=== PATIENT | female | born 1950 | race Caucasian/White ===

== ENCOUNTER 2018-01-22 23:08 | Emergency (ER) | payer MEDICARE, OTHER ==
[~2018-01-22] VITALS: Ht 167.6 cm; Wt 89.4 kg
--- OUTSIDE RECORDS SUMMARY | 2018-01-22 23:10 | XMS REPORT ---
Author Author Admin, [facility] [place] Address [place] Phone Unavailable Allergies, Adverse Reactions, Alerts Allergy Name Reaction Description Start Date Severity Status Provider PENICILLIN rash Critical Active Bartolome Messer MD Conditions or Problems Problem Name Problem Code Onset Date Status Entry Date Provider Comment Standard Description Annotate Hip pain, right 719.45 Active Elmer Guerra MD Pain in joint involving pelvic region and thigh acute flare up of chronic pain Pneumonia 486 Active Elmer Guerra MD Pneumonia, organism unspecified Vaccine against flu/influenza V04.8 Active Elmer Guerra MD Need for prophylactic vaccination and inoculation against other viral diseases Cholesterol, Screening V77.91 Active Elmer Guerra MD Screening for lipoid disorders Rib pain, left sided 786.50 Active Elmer Guerra MD Unspecified chest pain BMI 34.0-34.9 Active Elmer Guerra MD Body Mass Index 34.0-34.9, adult Allergic rhinitis 477.9 Active Elmer Guerra MD Allergic rhinitis, cause unspecified Vaccine against streptococcus pneumoniae V03.82 Active Elmer Guerra MD Need for prophylactic vaccination against Streptococcus pneumoniae [pneumococcus] HERNIA, VENTRAL 553.20 Active Kamaljit Freeman MD Unspecified ventral hernia without mention of obstruction or gangrene CARCINOMA, LUNG, HX OF V10.11 Active Sushila Malhotra MD Personal history of malignant neoplasm of bronchus and lung CHRONIC PAIN SYNDROME 338.4 Active Bartolome Messer MD Chronic pain syndrome OBESITY 278.00 Active Bartolome Messer MD Obesity, unspecified ANXIETY 300.00 Active Bartolome Messer MD Anxiety state, unspecified BACK PAIN 724.5 Active Bartolome Messer MD Backache, unspecified DIABETES MELLITUS 250.00 Active Bartolome Messer MD Diabetes mellitus without mention of complication, type II or unspecified type, not stated as uncontrolled HYPERTENSION 401.1 Active Bartolome Messer MD Benign essential hypertension BP is 120 over 80 OSTEOARTHRITIS 715.90 Active Bartolome Messer MD Osteoarthrosis, unspecified whether generalized or localized, involving unspecified site No evidence of escalation or diversion, compliant with pain contract. Achieving functional goals with the careful use of prescribed medication. Patient aware of risk/benefit of chronic pain medication and agrees with plan of care. Vaccination Against Influenza V04.81 Inactive Elmer Guerra MD Need for prophylactic vaccination and inoculation against influenza Vaccination Against Influenza ICD-V04.81 Inactive Elmer Guerra MD ADENOCARCINOMA, LUNG ICD-162.9 Inactive Sushila Malhotra MD NEED PROPH VACCINATION&INOCULAT OTH VIRAL DZ ICD-V04.89 Inactive Bartolome Messer MD HORDEOLUM ICD-373.11 Inactive Bartolome Messer MD DYSPNEA ICD-786.05 Inactive Sushila Malhotra MD ADENOCARCINOMA, LUNG 162.9 Resolved Sushila Malhotra MD Malignant neoplasm of bronchus and lung, unspecified NEED PROPH VACCINATION&INOCULAT OTH VIRAL DZ V04.89 Resolved Bartolome Messer MD Need for prophylactic vaccination and inoculation against other viral diseases HORDEOLUM 373.11 Resolved Bartolome Messer MD Hordeolum externum DYSPNEA 786.05 Resolved Sushila Malhotra MD Shortness of breath Medication List Medication Instructions Start Date Stop Date Generic Name NDC Status Provider Patient Instruction HYDROCHLOROTHIAZIDE 12.5 MG ORAL CAPSULE 1 by mouth every day HYDROCHLOROTHIAZIDE 08117068956 Active Elmer Guerra MD Active FLONASE ALLERGY RELIEF 50 MCG/ACT NASAL SUSPENSION 2 sprays each nostril every day FLUTICASONE PROPIONATE 76440096483 Active Elmer Guerra MD Active LIDODERM 5 % EXTERNAL PATCH one patch daily LIDOCAINE 75650798387 Active Liza Sarah DEV Active METFORMIN HCL ER (OSM) 500 MG ORAL TABLET EXTENDED RELEASE 24 HOUR take 1 tabs By Mouth bid METFORMIN HCL 96464590916 Active Elmer Guerra MD Active OXYCONTIN 80 MG [id number] 2 or 3 three times a day OXYCODONE HCL Active Sushila Malhotra MD Active PROAIR HFA 108 (90 Base) MCG/ACT INHALATION AEROSOL SOLUTION Two puff twice every 4 -6 housrs as needed ALBUTEROL SULFATE 45699707077 Active Elmer Guerra MD Active GABAPENTIN 300 MG ORAL CAPSULE Take 4 times a day GABAPENTIN 59942018516 Mik Guerra MD Active NAPROXEN 500 MG ORAL TABLET 1 by mouth twice a day as needed for pain and inflammation NAPROXEN 39420938958 Active Bartolome Messer MD Active BARIATRIC QUAD CANE For 4 footed cane to aid stability MISC. DEVICES 82219744987 Active Bartolome Messer MD Active ULTIMA KIT Test sugars twice a day BLOOD GLUCOSE MONITORING SUPPL 84654424982 Active Bartolome Messer MD Active ULTIMA TEST IN VITRO STRIP Test once to twice a day GLUCOSE BLOOD 45214071042 Mik Messer MD Active AMLODIPINE BESY-BENAZEPRIL HCL 10-20 MG ORAL CAPSULE One daily AMLODIPINE BESY-BENAZEPRIL HCL 88727353046 Active Elmer Guerra MD Active CELEXA 20 MG ORAL TABLET 1 by mouth every day CELEXA 20 MG ORAL TABLET 119871 CITALOPRAM HYDROBROMIDE Inactive DIAZEPAM 2 MG ORAL TABLET One daily DIAZEPAM 2 MG ORAL TABLET 128355 DIAZEPAM Inactive LISINOPRIL 20 MG ORAL TABLET 1 by mouth every day LISINOPRIL 20 MG ORAL TABLET 264445 LISINOPRIL Inactive BISOPROLOL-HYDROCHLOROTHIAZIDE 10-6.25 MG ORAL TABLET take 1 tablet By Mouth Every Day BISOPROLOL-HYDROCHLOROTHIAZIDE 10-6.25 MG ORAL TABLET 731630 BISOPROLOL-HYDROCHLOROTHIAZIDE Inactive CIPRODEX 0.3-0.1 % OTIC SUSPENSION Apply to R eye twice a day CIPRODEX 0.3-0.1 % OTIC SUSPENSION CIPROFLOXACIN-DEXAMETHASONE Inactive CELEXA 20 MG ORAL TABLET 1 by mouth every day CITALOPRAM HYDROBROMIDE 23078433026 No Longer Active Elmer Guerra MD Active DIAZEPAM 2 MG ORAL TABLET One daily DIAZEPAM 77897329968 No Longer Active Elmer Guerra MD Active LISINOPRIL 20 MG ORAL TABLET 1 by mouth every day LISINOPRIL 67648564146 No Longer Active Sushila Malhotra MD Active BISOPROLOL-HYDROCHLOROTHIAZIDE 10-6.25 MG ORAL TABLET take 1 tablet By Mouth Every Day BISOPROLOL-HYDROCHLOROTHIAZIDE 24421083336 No Longer Active Elmer Guerra MD Active CIPRODEX 0.3-0.1 % OTIC SUSPENSION Apply to R eye twice a day CIPROFLOXACIN-DEXAMETHASONE 06731601289 No Longer Active Sushila Malhotra MD Active Advance Directives Directive Description Start Date PER PT SHE WILL BRING A OOPY OF HER WILL Immunizations Vaccine Administration Date Value Standard Description influenza immunization (Flu Vax) has been administered given influenza virus vaccine, unspecified formulation pneumococcal immunization administered given pneumococcal polysaccharide vaccine, 23 valent influenza immunization (Flu Vax) has been administered given influenza virus vaccine, unspecified formulation PEDIATRIC PNEUMOCOCCAL VACCINE ([id number]) #1 given pneumococcal conjugate vaccine, 13 valent influenza immunization (Flu Vax) has been administered given influenza virus vaccine, unspecified formulation influenza immunization (Flu Vax) has been administered Given as: Flu (split) (3 yrs or older) 0.5 mL IM influenza virus vaccine, unspecified formulation Vital Signs Date Name Value Unit Range Description blood pressure, diastolic, second observation 76 mm[Hg] BP branham blood pressure, diastolic 82 mm[Hg] BP branham blood pressure, systolic, second observation 126 mm[Hg] BP sys blood pressure, systolic 159 mm[Hg] BP sys height E&M 65 [in_us] Bdy height pulse rate E&M 111 /min Heart rate respiratory rate E&M 18 /min Resp rate temperature E&M 98.4 [degF] Body temperature weight E&M 193 [lb_av] Weight Measured blood pressure, diastolic 79 mm[Hg] BP branham blood pressure, systolic 133 mm[Hg] BP sys height E&M 65 [in_us] Bdy height pulse rate E&M 91 /min Heart rate respiratory rate E&M 16 /min Resp rate temperature E&M 98.4 [degF] Body temperature weight E&M 204.80 [lb_av] Weight Measured blood pressure, diastolic 68 mm[Hg] BP branham blood pressure, systolic 152 mm[Hg] BP sys height E&M 65 [in_us] Bdy height pulse rate E&M 80 /min Heart rate respiratory rate E&M 18 /min Resp rate temperature E&M 97.7 [degF] Body temperature weight E&M 199 [lb_av] Weight Measured Diagnostic Results Date Name Value Unit Range Description Lab Report: CBC With Differential/Platelet, Comp. Metabolic Panel (14), ... - Hematology lymphocyte count, blood, automated 2.8 X10E3/UL 10*3/mm3 0.7- 3.1 Lab Report: Comp. Metabolic Panel (14), Hemoglobin A1c - Chemistry urea nitrogen, blood 6 mg/dL 8-27 creatinine, serum 0.72 mg/dL 0.57-1.00 chloride, serum 89 mmol/L 96-106 Lab Report: CBC With Differential/Platelet, Comp. Metabolic Panel (14), ... - Hematology mean corpuscular volume, RBC 99 fL 79-97 Lab Report: Comp. Metabolic Panel (14), Lipid Panel, Hemoglobin A1c - Chemistry triglyceride, serum, fasting 83 mg/dL 0-149 Lab Report: CBC With Differential/Platelet, Comp. Metabolic Panel (14), ... - Hematology erythrocyte (RBC) count 4.71 X10E6/UL 10*6/mm3 3.77-5.28 Lab Report: Comp. Metabolic Panel (14), Hemoglobin A1c - Chemistry Estimated Glomerular Filtration Rate (calc) 86 mL/min/1.73m2 > 59 Lab Report: CBC With Differential/Platelet, Comp. Metabolic Panel (14), ... - Hematology platelet count 254 X10E3/UL 10*3/mm3 725-013 6366/03/01 red blood cell distribution width 14.0 % 12.3-15.4 Lab Report: Comp. Metabolic Panel (14), Hemoglobin A1c - Chemistry protein, total, serum 7.1 g/dL 6.0-8.5 Lab Report: Comp. Metabolic Panel (14), Lipid Panel, Hemoglobin A1c - Chemistry HDL cholesterol, serum 55 mg/dL >39 Lab Report: Comp. Metabolic Panel (14), Hemoglobin A1c - Chemistry albumin/globulin ratio, serum 1.4 1.2-2.2 Lab Report: CBC With Differential/Platelet, Comp. Metabolic Panel (14), ... - Hematology eosinophils as percent of blood leukocytes 1 % Lab Report: CBC With Differential/Platelet, Comp. Metabolic Panel (14), ... - Chemistry Absolute Neutrophils 6.6 X10E3/UL 10*3/uL 1.4-7.0 microalbumin/creatinine ratio, urine 16.6 MG/G CREAT ug/mg 0.0- 30.0 Lab Report: CBC With Differential/Platelet, Comp. Metabolic Panel (14), ... - Hematology basophil count, absolute 0.0 x10E3/uL 0.0-0.2 Lab Report: Comp. Metabolic Panel (14), Hemoglobin A1c - Chemistry alanine aminotransferase (SGPT), serum 11 U/L 0-32 Lab Report: Comp. Metabolic Panel (14), Lipid Panel, Hemoglobin A1c - Chemistry LDL cholesterol, serum 80 mg/dL 0-99 Lab Report: CBC With Differential/Platelet, Comp. Metabolic Panel (14), ... - Hematology monocytes as percent of blood leukocytes 7 % Lab Report: Comp. Metabolic Panel (14), Lipid Panel, Hemoglobin A1c - Chemistry cholesterol, serum 152 mg/dL 100-199 Lab Report: CBC With Differential/Platelet, Comp. Metabolic Panel (14), ... - Hematology mean corpuscular hemoglobin concentration, RBC 32.5 G/DL % 31.5- 35.7 hemoglobin, blood 15.2 g/dL 11.1-15.9 leukocyte count, blood 10.3 X10E3/UL 10*3/mm3 3.4-10.8 hematocrit, blood 46.7 % 34.0-46.6 Lab Report: Comp. Metabolic Panel (14), Hemoglobin A1c - Chemistry globulin, serum 3.0 1.5-4.5 albumin, serum 4.1 g/dL 3.6-4.8 Internal Correspondence: Pre-Visit Planning - Other List of providers caring for patient Stefanie Naqvi and Desirae Reid Lab Report: Comp. Metabolic Panel (14), Lipid Panel, Hemoglobin A1c - Chemistry very low density lipoproteins 17 mg/dL 5-40 Lab Report: Comp. Metabolic Panel (14), Hemoglobin A1c - Chemistry calcium, serum 9.3 mg/dL 8.7-10.3 Lab Report: CBC With Differential/Platelet, Comp. Metabolic Panel (14), ... - Hematology basophils as percent of blood leukocytes 0 % Lab Report: CBC With Differential/Platelet, Comp. Metabolic Panel (14), ... - Urinalysis microalbumin/total urine volume 9 mg/L Units converted. See lab report for original value. Lab Report: CBC With Differential/Platelet, Comp. Metabolic Panel (14), ... 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 Metabolic Panel (14), Hemoglobin A1c - Chemistry urea nitrogen/creatinine ratio, serum 8 12-28 Lab Report: CBC With Differential/Platelet, Comp. Metabolic Panel (14), ... - Chemistry immature granulocytes, percentage of total cells, blood 0 % Lab Report: Comp. Metabolic Panel (14), Hemoglobin A1c - Genetics/fertility eGFR if 99 mL/min/1.73m2 >59 Lab Report: CBC With Differential/Platelet, Comp. Metabolic Panel (14), ... - Hematology lymphocytes as percent of blood leukocytes 27 % Lab Report: Comp. Metabolic Panel (14), Hemoglobin A1c - Chemistry carbon dioxide, venous blood 32 mmol/L 18-29 sodium, serum 137 mmol/L 462-785 5185/11/08 hemoglobin A1C, blood, as % of total hemoglobin 6.4 % 4.8-5.6 alkaline phosphatase, serum 74 U/L 39-117 Lab Report: CBC With Differential/Platelet, Comp. Metabolic Panel (14), ... - Hematology Eosinophil Absolute Count 0.1 X10E3/UL 10*3/uL 0.0-0.4 mean corpuscular hemoglobin, RBC 32.3 pg 26.6-33.0 Lab Report: Comp. Metabolic Panel (14), Hemoglobin A1c - Chemistry bilirubin, serum, total 0.3 mg/dL 0.0-1.2 Lab Report: CBC With Differential/Platelet, Comp. Metabolic Panel (14), ... - Chemistry creatinine, random, urine 54.1 mg/dL 15.0-278.0 Lab Report: CBC With Differential/Platelet, Comp. Metabolic Panel (14), ... - Hematology neutrophils as percent of blood leukocytes 65 % Lab Report: Comp. Metabolic Panel (14), Hemoglobin A1c - Chemistry blood glucose, random 136 mg/dL 65-99 potassium, serum 4.0 mmol/L 3.5-5.2 aspartate aminotransferase (SGOT), serum 14 U/L 0-40 Encounters Date Encounter Provider Code Facility 08:58:24 BUCKET CHUCKER Est Patient Exp Problem - 72234 Elmer Guerra MD CPT-07730 [facility] 11:35:39 BUCKET [facility]ER Est Patient Exp Problem - 02820 Elmer Guerra MD CPT-51476 [facility] 15:04:55 CDT Est Patient Exp Problem - 10133 Elmer Guerra MD CPT-29032 [facility] 09:40:19 CDT Est Patient Exp Problem - 77303 Elmer Guerra MD CPT-77611 [facility] 14:53:23 CDT Est Patient Exp Problem - 71476 Elmer Guerra MD CPT-12239 [facility] 09:55:16 BUCKET [facility]ER Est Patient Exp Problem - 23080 Elmer Guerra MD CPT-91223 [facility] 11:16:44 [facility] Est Patient Exp Problem - 09034 Elmer Guerra MD CPT-89963 [facility] 02:17:49 CDT Ofc Vst, Est Level IV Kamaljit Freeman MD CPT-31523 [facility] 09:59:10 CDT Est Patient Detailed - 49936 Sushila Malhotra MD CPT-74163 [facility] 09:43:54 CDT Est Patient Exp Problem - 24132 Bartolome Messer MD CPT-45204 [facility] 08:25:57 CDT Est Patient Exp Problem - 92950 Bartolome Messer MD CPT-52824 [facility] 08:27:39 CDT Est Patient Exp Problem - 74931 Bartolome Messer MD CPT-43912 [facility] 09:14:50 CDT Est Patient Exp Problem - 49948 Bartolome Messer MD CPT-46665 [facility] 08:56:47 BUCKET [facility]ER Est Patient Exp Problem - 11651 Bartolome Messer MD CPT-44746 [facility] 11:44:42 BU[facility]ET [facility]ER Est Patient Exp Problem - 78179 Bartolome Messer MD CPT-64793 [facility] 09:03:34 BUCKET [facility]UCKER Est Patient Exp Problem - 05528 Bartolome Messer MD CPT-77170 [facility] 09:23:22 BUCKET CHUCKER Est Patient Exp Problem - 56326 Bartolome Messer MD CPT-10213 [facility] 10:01:49 BUCKET CHUCKER Est Patient Exp Problem - 18607 Bartolome Messer MD CPT-10362 [facility] 08:50:36 CDT Est Patient Exp Problem - 68194 Bartolome Messer MD CPT-86322 [facility] 09:39:15 CDT Est Patient Exp Problem - 29821 Bartolome Messer MD CPT-76569 [facility] 08:25:44 CDT Est Patient Exp Problem - 05391 Bartolome Messer MD CPT-68834 [facility] 09:02:45 CDT Est Patient Detailed - 47324 Bartolome Messer MD CPT -62061 [facility] Procedures Code Procedure Name Date Entry Date Standard Description CPT-J1885 Injection, ketorolac tromethamine (toradol), per 15 mg 08:58:24 BUCKET [facility]ER CPT-36020 Admin of Vaccine - Injection - Each Add'l 14:53:29 CDT CPT-11279 Prevnar (PCV13) IM 14:53:29 CDT CPT-13309 INFLUENZA VACCINE QUADRIVALENT 3 YRS PLUS IM 14:53:29 CDT CPT-57151 Admin of Vaccine - Injection - 1 14:53:29 CDT CPT-02314 Glucose Stick 11:16:44 BUCKET [facility]ER CPT-79140 Influenza - Adult - Injection 10:01:49 [facility] CPT-50488 Influenza - Adult - Injection 08:50:36 CDT
--- OUTSIDE RECORDS SUMMARY | 2018-01-22 23:10 | XMS REPORT | Clinical Summary ---
Author Author [facility] Address Unknown Phone Unavailable Care Team Providers Care Life Advisor Name Role Phone Elmer Guerra MD PCP Allergies Active Allergy Reactions Severity Noted Date Comments Penicillins 04/10/2017 Current Medications Prescription Sig. Disp. Refills Start End Date Status Date PROAIR HFA 90 TWO PUFF TWICE EVERY 4 -6 0 02/24/20 Active mcg/actuation inhaler HOUSRS NEEDED 17 amlodipine-benazepril Take 1 capsule by mouth 3 01/06/20 Active (LOTREL) 10-20 mg per once daily. 17 capsule metFORMIN XR Take 500 mg by mouth 2 3 02/21/20 Active (GLUCOPHAGE-XR) 500 mg 24 (two) times a day. 17 hr tablet hydroCHLOROthiazide Take 12.5 mg by mouth 6 03/30/20 Active (MICROZIDE) 12.5 mg once daily. 17 capsule EMBEDA 20-0.8 mg TAKE 1 CAPSULE BY MOUTH 0 03/17/20 Active capsule,oral only,ext.rel TWICE A DAY FOR PAIN 17 mickie cetirizine (ZyrTEC) 10 MG Take 10 mg by mouth Active tablet daily. gabapentin (NEURONTIN) Take 400 mg by mouth 3 Active 400 mg capsule (three) times a day. lidocaine (LIDODERM) 5 % Place 1 patch on the skin Active daily. Remove & Discard patch within 12 hours or as directed by diazePAM (VALIUM) 2 MG Take 2 mg by mouth every Active tablet 6 (six) hours as needed for anxiety. SENNOSIDES (SENNA LAX Take by mouth. Active ORAL) aspirin (ECOTRIN) 81 MG Take 81 mg by mouth Active enteric coated tablet daily. OXYCODONE HCL (OXYCONTIN Take 60 mg by mouth 3 Active ORAL) (three) times a day. acetaminophen-codeine TAKE 1 TABLET BY MOUTH 0 03/15/20 Active (TYLENOL WITH CODEINE #3) EVERY 6 HOURS NEEDED 17 300-30 mg per tablet FOR PAIN CONTROL HYDROcodone-acetaminophen Take 1 tablet by mouth 0 08/06/20 09/23/20 Discontin (NORCO) 10-325 mg per every 6 (six) hours as 17 17 ued tablet needed. azithromycin (ZITHROMAX Take 2 tablets the first 6 tablet 0 11/26/19 11/30/19 Z-ROSI) 250 MG tablet day, then 1 tablet daily 18 18 for 4 days. Active Problems No known active problems Encounters Date Type Specialty Care Team Description 11/26/2017 Emergency Emergency Medicine Zarina Dozier MD Gastroenteritis (Primary - Dx); 11/27/2017 Pneumonia of right lung due to infectious organism, unspecified part of lung 09/07/2017 Procedure Pass General Surgery 04/21/2017 Office Visit General Surgery Felice Hadley, Ventral hernia, recurrent (Primary Dx) 03/15/2017 Hospital Emergency Medicine Physician, Emergency, MD Encounter Bryce Parker MD after 01/21/2017 Family History Medical History Relation Name Comments Heart disease Father Diabetes Mother Relation Name Status Comments Father Mother Social History Tobacco Use Types Packs/Day Years Used Date Current Every Day Smoker Cigarettes 50 Smokeless Tobacco: Never Used Tobacco Cessation: Ready to Quit: Yes Alcohol Use Drinks/Week oz/Week Comments No Sex Assigned at Date Recorded Not on file Last Filed Vital Signs Vital Sign Reading Time Taken Blood Pressure 150/72 11/27/2017 12:50 AM [employer] Pulse 89 11/27/2017 12:50 AM [employer] Temperature 37 C (98.6 F) 11/26/2017 5:34 PM [employer] Respiratory Rate 18 11/27/2017 12:50 AM [employer] Oxygen Saturation 96% 11/27/2017 12:50 AM [employer] Inhaled Oxygen - - Concentration Weight 90.7 kg (200 lb) 04/21/2017 9:36 AM CDT Height 166.4 cm (5' 5.5") 11/26/2017 5:30 PM [employer] Body Mass Index 33.28 04/21/2017 9:36 AM CDT Plan of Treatment Health Maintenance Due Date Last Done Comments COLONOSCOPY 1998 MAMMOGRAM 1998 ZOSTER VACCINE 2008 PNEUMOCOCCAL 2013 POLYSACCHARIDE VACCINE AGE 65 AND OVER PNEUMOCOCCAL-13 2013 INFLUENZA VACCINE 06/23/2017 09/21/2014 Results * XR Chest 2 Vw (11/26/2017 7:35 PM) Specimen Performing Laboratory [facility] [address] [place] [address] Narrative EXAMINATION: XR CHEST 2 VW CLINICAL HISTORY: Cough COMPARISON:None. IMPRESSION: The lungs are mildly hyperinflated. Faint basilar airspace opacities greater on the right, may represent developing pneumonia in the appropriate clinical setting. No pleural effusion or pneumothorax. The cardiomediastinal silhouette is normal. Thoracic aorta with atherosclerotic calcifications. Degenerative spine changes. Chronic appearing left rib deformity, possibly postsurgical. Clip projecting over the left upper hemithorax. No acute osseous abnormalities. [id number] Procedure Note Interface, Radiology Results Incoming - 11/26/2017 7:42 PM [employer] EXAMINATION: XR CHEST 2 VW CLINICAL HISTORY: Cough COMPARISON: None. IMPRESSION: The lungs are mildly hyperinflated. Faint basilar airspace opacities greater on the right, may represent developing pneumonia in the appropriate clinical setting. No pleural effusion or pneumothorax. The cardiomediastinal silhouette is normal. Thoracic aorta with atherosclerotic calcifications. Degenerative spine changes. Chronic appearing left rib deformity, possibly postsurgical. Clip projecting over the left upper hemithorax. No acute osseous abnormalities. [facility]-[id number] * Estimated GFR (11/26/2017 5:56 PM) Component Value Ref Range GFR Non Af Amer 83 mL/min/1.73 m2 GFR Af Amer >90 mL/min/1.73 m2 Comment: Chronic kidney disease: <60 mL/min/1.73m2 Kidney failure: <15 mL/min/1.73m2 The estimated GFR is calculated from the IDMS-traceable Modification of Diet in Renal Disease Equation. The accuracy of the calculation is poor when the creatinine is normal. Calculated values >90 mL/min/1.73m2 are not reported. This equation has not been validated in children (<18 years), women, the elderly (>70 years), or ethnic groups other than Caucasians and Americans. Specimen Performing Laboratory Plasma specimen [facility] DEPARTMENT OF PATHOLOGY AND GENOMIC MEDICINE [address] [place] [address] * CBC with platelet and differential (11/26/2017 5:56 PM) Component Value Ref Range WBC 16.7 (H) 4.2 - 11.0 k/uL RBC 4.52 4.04 - 5.86 m/uL HGB 14.6 11.5 - 15.3 g/dL HCT 42.0 34.0 - 45.0 % MCV 92.9 80.0 - 98.0 fL MCH 32.3 27.0 - 34.0 pg MCHC 34.8 31.5 - 36.5 g/dL RDW - SD 42.2 37.0 - 51.0 fL MPV 9.3 7.4 - 10.4 fL Platelet count 354 150 - 400 k/uL Nucleated RBC 0.00 /100 WBC Neutrophils 83.6 (H) 36.0 - 66.0 % Lymphocytes 9.5 (L) 24.0 - 44.0 % Monocytes 6.1 (H) 0.0 - 6.0 % Eosinophils 0.0 0.0 - 6.0 % Basophils 0.2 0.0 - 1.2 % Immature granulocytes 0.6 0.0 - 1.0 % Specimen Performing Laboratory Blood [facility] DEPARTMENT OF PATHOLOGY AND GENOMIC MEDICINE [address] [place] [id number] * Lipase level (11/26/2017 5:56 PM) Component Value Ref Range Lipase 64 (L) 65 - 230 U/L Specimen Performing Laboratory Plasma specimen [facility] DEPARTMENT OF PATHOLOGY AND GENOMIC MEDICINE [address] [place] [id number] * Lactic acid level (11/26/2017 5:56 PM) Component Value Ref Range Lactic acid 1.5 0.5 - 2.2 mmol/L Specimen Performing Laboratory Blood [facility] DEPARTMENT OF PATHOLOGY AND GENOMIC MEDICINE [address] [place] [id number] * Amylase level (11/26/2017 5:56 PM) Component Value Ref Range Amylase 18 (L) 34 - 122 U/L Specimen Performing Laboratory Plasma specimen [facility] DEPARTMENT OF PATHOLOGY AND GENOMIC MEDICINE [facility] [place] [address] * Comprehensive metabolic panel (11/26/2017 5:56 PM) Component Value Ref Range Sodium 128 (L) 135 - 150 mEq/L Potassium 3.0 (L) 3.5 - 5.0 mEq/L Chloride 87 (L) 100 - 109 mEq/L CO2 36 (H) 24 - 32 mmol/L Anion gap 5 (L) 7 - 15 mEq/L Comment: Starting from February , anion gap calculation no longer incorporates potassium. Please note the change. BUN 13 7 - 18 mg/dL Creatinine 0.7 (L) 0.8 - 1.5 mg/dL Glucose 164 (H) 65 - 100 mg/dL Calcium 8.6 8.6 - 10.7 mg/dL Protein 7.9 6.3 - 8.2 g/dL Albumin 2.8 (L) 3.2 - 5.0 g/dL A/G ratio 0.5 (L) 0.7 - 3.8 Alkaline phosphatase 97 30 - 120 U/L AST 9 (L) 15 - 37 U/L ALT 13 (L) 30 - 65 U/L Total bilirubin 0.6 0.2 - 1.2 mg/dL Specimen Performing Laboratory Plasma specimen [facility] DEPARTMENT OF PATHOLOGY AND GENOMIC MEDICINE [address] [place] [address] after 01/21/2017 Insurance Payer Benefit Subscriber ID Type Phone Address Plan / Group MEDICARE MEDICARE xxxxxxxxxx Medicare [place], [place] PART A AND B [facility] xxxxxxxxx PPO [employer] HMO/POS/PP O JERI FAUSTIN [employer] Self 1950 Home: [address] [place] [address] Surgery
[2018-01-23 00:01] LABS: BASOPHILS % 0.1 % (0.0-1.0); EOSINOPHILS % 0.1 % (0.0-6.0); HEMATOCRIT 44.2 % (34.2-44.1); HEMOGLOBIN 14.9 g/dL (12.0-16.0); LYMPHOCYTES # (AUTO) 0.8 (1.0-3.2); LYMPHOCYTES % 5.1 % (18.0-39.1); MEAN CORPUSCULAR HGB CONC 33.7 g/dL (31-35); MEAN CORPUSCULAR VOLUME 91.9 fL (81-99); MONOCYTES # (AUTO) 0.7 (0.2-0.8); MONOCYTES % 4.4 % (4.4-11.3); NEUTROPHILS # (AUTO) 14.8 (2.1-6.9); PLATELET COUNT 259 x10e3/uL (140-360); RED BLOOD COUNT 4.81 x10e6/uL (3.6-5.1); RED CELL DISTRIBUTION WIDTH 12.5 % (11.7-14.4)
[2018-01-23 00:05] LABS: ALANINE AMINOTRANSFERASE 17 IU/L (0-55); ALBUMIN 3.8 g/dL (3.5-5.0); ALBUMIN/GLOBULIN RATIO 0.9 (0.8-2.0); ALKALINE PHOSPHATASE 78 IU/L (40-150); ANION GAP 15.8 mmol/L (8-16); BLOOD UREA NITROGEN 15 mg/dL (7-26); BUN/CREATININE RATIO 18 (6-25); CALCIUM 9.6 mg/dL (8.4-10.2); CARBON DIOXIDE 32 mmol/L (22-29); CHLORIDE 93 mmol/L (98-107); CREATININE, SERUM 0.82 mg/dL (0.57-1.11); EST GLOMERULAR FILTRATION RATE > 60 ML/MIN (60-); GLUCOSE 200 mg/dL (74-118); POTASSIUM 3.8 mmol/L (3.5-5.1); SODIUM 137 mmol/L (136-145)
[2018-01-23] MEDS ORDERED: ALBUTEROL SULF 0.083% NEB SOLN 3 ML NEB NEB STA (00:23)
[2018-01-23] MEDS ORDERED: IPRATROPIUM BROMIDE 0.02% 2.5 ML NEB NEB ONE (00:30)
[2018-01-23 01:50] LABS: BILIRUBIN,URINE 1+ (NEGATIVE); CLARITY,URINE SL CLOUDY (CLEAR); COLOR,URINE AMBER (YELLOW); KETONES,URINE 1+ (NEGATIVE); LEUKOCYTE ESTERASE ,URINE TRACE (NEGATIVE); NITRITE,URINE NEGATIVE (NEGATIVE); PROTEIN,URINE DIPSTICK 1+ (NEGATIVE); URINE UROBILINOGEN 1 mg/dL (0.2 - 1)
[2018-01-23 01:58] LABS: BACTERIA,URINE FEW /HPF; EPITHELIAL CELLS,URINE FEW /LPF; MUCUS,URINE MODERATE (RARE); RBC,URINE 0-5 /HPF (0-5)
--- NOTE | 2018-01-23 02:28 | Diagnostic Imaging Report ---
EXAM: ABDOMEN COMP INCL UPR or DECUB, supine and erect INDICATION: Hernia, no bowel movement COMPARISON: None FINDINGS: LINES/TUBES: None BOWEL PATTERN: No evidence for obstruction. SOFT TISSUES: No abnormal calcifications. LUNG BASES: No consolidations BONES: No acute findings. IMPRESSION: Large amount of retained stool without evidence of obstruction. Signed by: Dr. Jenny Alejandro M.D. on 01/23/2018 2:25 AM
--- NOTE | 2018-01-23 02:28 | Diagnostic Imaging Report ---
EXAM: CHEST 2 VIEWS, PA and lateral INDICATION: Hernia, no bowel movement COMPARISON: None FINDINGS: LINES/TUBES: None LUNGS: No consolidations or edema. Bibasilar atelectasis or scarring PLEURA: No effusions or pneumothorax. HEART AND MEDIASTINUM: Normal size and contour. BONES AND SOFT TISSUES: No acute findings. IMPRESSION: No acute thoracic abnormality. Signed by: Dr. Jenny Alejandro M.D. on 01/23/2018 2:24 AM
[2018-01-23] MEDS ORDERED: ONDANSETRON HCL INJ 2 MG/ML VIAL IV STA (02:43)
== END 2018-01-23 03:51 | disposition home or self-care (01) ==
LOC: ER 23:08
DX: R10.84 Generalized abdominal pain (principal); R11.0 Nausea; K59.00 Constipation, unspecified; N30.90 Cystitis, unspecified without hematuria; K42.9 Umbilical hernia without obstruction or gangrene
CPT/HCPCS: 36415; 71046; 80053; 81001; 85025; 94640; 99284; J2405